=== PATIENT | male | born 1990 | race Caucasian/White ===

== ENCOUNTER 2024-09-04 17:32 | Emergency (ER) | payer OTHER ==
--- NOTE | 2024-09-04 19:01 | RAD REPORT ---
EXAMINATION: ONE VIEW CHEST XR CLINICAL INDICATION: Male, 34 years old.,PALPITATIONS TECHNIQUE: Frontal chest projection is submitted. Examination is limited by patient positioning and t echnique. COMPARISON: 05/26/2023 FINDINGS: The lungs are well inflated and clear. No pneumothorax or sizable effusion. The heart is normal in s ize. Mediastinal contours are unremarkable. IMPRESSION: No acute intrathoracic abnormalities.
[2024-09-04 19:28] LABS: Absolute Basophils 0.1 K/uL (0-0.5); Absolute Eosinophils 0.3 K/uL (0-0.5); Absolute Lymphocytes (CBC) 1.2 K/uL (0.7-4.9); Absolute Monocytes 0.6 K/uL (0.1-1.3); Absolute Neutrophil 5.2 K/uL (1.8-8.0); Basophils % 0.7 % (0-1.3); Eosinophils % 3.9 % (0-4.4); Hematocrit 39.7 % (39.6-49.0); Hemoglobin 13.4 g/dL (13.6-17.9); Lymphocytes % 16.6 % (15.3-44.8); MCH 28.1 pg (27.0-35.0); MCHC 33.7 g/dL (32.0-36.0); MCV 83.4 fL (80-100); Monocytes % 7.6 % (3.3-12.3); Neutrophils % 71.2 % (41.7-73.7); Platelets 246 thou/uL (152-406); RBC Red Blood Cell Count 4.76 M/uL (4.33-5.43); Red Cell Distribution Width 14.9 % (12.1-15.2)
[2024-09-04 19:51] LABS: Anion Gap 7.8 mEq/L (5.0-15.0); Magnesium 2.1 mg/dL (1.6-2.4); Potassium 3.8 mEq/L (3.5-5.1); Thyroid Stimulating Hormone 1.48 uIU/mL (0.358-3.740); Troponin High Sensitivity 3.1 pg/mL (<58.9)
--- NOTE | 2024-09-04 20:03 | ER ---
Nurse's Notes [facility] Name: Marquise Randall Age: 34 yrs Sex: Male : 1990 Arrival Date: 09/04/2024 Time: 17:32 Bed DX3 Private MD: Diagnosis: Palpitations Presentation: 09/04 17:36 Chief complaint: Patient states: Irregular HR and palpitations since 1530 today. ll1 Coronavirus screen: Client denies travel out of the [place] in the last 14 days. congestion, cough unrelated to allergies, fatigue, fever, muscle pain, Client presents with at least one sign or symptom that may indicate coronavirus-19. Standard/surgical mask placed on the client. Ebola Screen: Patient denies travel to an Ebola-affected area in the 21 days before illness onset. Initial Sepsis Screen: Does the patient meet any 2 criteria? No. Patient's initial sepsis screen is negative. Does the patient have a suspected source of infection? No. Patient's initial sepsis screen is negative. Risk Assessment: Do you want to hurt yourself or someone else? Patient reports no desire to harm self or others. Onset of symptoms was September 04, 2024. 17:36 Method Of Arrival: Ambulatory ll1 17:36 Acuity: PEG 3 ll1 Triage Assessment: 17:38 General: Appears uncomfortable, Behavior is calm, cooperative, appropriate for age. ll1 Pain: Denies pain. Cardiovascular: Reports palpitations. Historical: - Allergies: 17:38 SHELLFISH; ll1 - PMHx: 17:38 None; ll1 - PSHx: 17:38 ankle relocation; ll1 - Immunization history:: Adult Immunizations up to date. - Infectious Disease History:: Denies. - Social history:: Smoking status: Patient denies any tobacco usage or history of. Screenin:09 [facility] ED Fall Risk Assessment (Adult) History of falling in the last 3 months, lg3 including since admission No falls in past 3 months (0 pts) Confusion or Disorientation No (0 pts) Intoxicated or Sedated No (0 pts) Impaired Gait No (0 pts) Mobility Assist Device Used No (0 pt) Altered Elimination No (0 pt) Score/Fall Risk Level 0 - 2 = Low Risk Oriented to surroundings, Maintained a safe environment, Educated pt \T\ family on fall prevention, incl call for assistance when getting out of bed, Assessed \T\ reinforced patient's understanding of fall precautions. Abuse screen: Denies threats or abuse. Denies injuries from another. Nutritional screening: No deficits noted. Tuberculosis screening: No symptoms or risk factors identified. Assessment: 20:09 General: Appears in no apparent distress. comfortable, Behavior is calm, cooperative. lg3 Pain: Denies pain. Neuro: No deficits noted. Ott Agitation-Sedation Scale (RASS): 0 - Alert and Calm Level of Consciousness is awake, alert, obeys commands, Oriented to person, place, time, situation. Cardiovascular: No deficits noted. Reports palpitations, since resolved Capillary refill < 3 seconds Clubbing of nail beds is absent JVD is absent Patient's skin is warm and dry. Respiratory: No deficits noted. Airway is patent Respiratory effort is even, unlabored, Respiratory pattern is regular, symmetrical, Breath sounds are clear bilaterally. GI: No deficits noted. No signs and/or symptoms were reported involving the gastrointestinal system. : No signs and/or symptoms were reported regarding the genitourinary system. EENT: No deficits noted. No signs and/or symptoms were reported regarding the EENT system. Derm: No deficits noted. No signs and/or symptoms reported regarding the dermatologic system. Skin is intact, is healthy with good turgor, Skin is dry, Skin is normal, Skin temperature is warm. Musculoskeletal: No deficits noted. No signs and/or symptoms reported regarding the musculoskeletal system. Circulation, motion, and sensation intact. Range of motion: intact in all extremities. Vital Signs: 17:36 BP 159 / 102; Pulse 103; Resp 17; Temp 97.5; Pulse Ox 98% on R/A; Weight 142.88 kg; ll1 Height 6 ft. 0 in. ; Pain 0/10; 20:09 BP 147 / 91; Pulse 97; Resp 17 S; Temp 98.1(O); Pulse Ox 99% on R/A; Pain 0/10; lg3 17:36 Body Mass Index 42.72 (142.88 kg, 182.88 cm) ll1 17:36 Pain Scale: Adult ll1 20:09 Pain Scale: Adult lg3 ED Course: 17:33 Patient arrived in ED. al6 17:35 Stefanie Reardon FNP-C is PHCP. kb 17:36 Simin Chatman MD is Attending Physician. kb 17:38 Triage completed. ll1 17:38 Arm band placed on. ll1 17:46 EKG completed in triage. Results shown to MD. ll1 18:25 XRAY Chest (1 view) In Process Unspecified. EDMS 19:17 Inserted saline lock: 22 gauge in right antecubital area, using aseptic technique. f Blood collected. Flushed with 10 mL NS. 19:17 Initial lab(s) drawn, by me, sent to lab. kmf 19:22 TSH Sent. lg3 19:23 CBC with Diff Sent. lg3 19:23 Basic Metabolic Panel Sent. lg3 19:23 Magnesium Sent. lg3 19:23 Troponin HS Sent. lg3 19:23 CBC with Diff Sent. lg3 20:09 Patient has correct armband on for positive identification. lg3 20:09 No provider procedures requiring assistance completed. IV discontinued, intact, lg3 bleeding controlled, No redness/swelling at site. Pressure dressing applied. Administered Medications: No medications were administered Medication: 20:09 VIS not applicable for this client. lg3 Outcome: 20:02 Discharge ordered by MD. kb 20:09 Discharged to home ambulatory, lg3 20:09 Condition: stable 20:09 Discharge instructions given to patient, Instructed on discharge instructions, follow up and referral plans. Demonstrated understanding of instructions, follow-up care, 20:13 Patient left the ED. lg3 Signatures: Dispatcher [employer] EDWI Stefanie Reardon, CLOSING MANAGER-C CLOSING MANAGER-Bree Gaspar RN RN lg3 Rosalind Bertrand, RN RN 1 Dominique Yeung [facility] Luz Maria Mukherjee
--- NOTE | 2024-09-04 20:03 | EDPHYS ---
Physician Documentation [facility] Name: Marquise Randall Age: 34 yrs Sex: Male : 1990 Arrival Date: 09/04/2024 Time: 17:32 Bed DX3 Private MD: ED Physician Simin Chatman HPI: 09/04 17:45 This 34 yrs old Male presents to ER via Ambulatory with complaints of heart beat kb feeling weird. 17:45 Pt is a 34 year old male who presents for palpitations that started at 1600. States it kb has been intermittent since onset. Describes palpitations as "beating hard." States he has had this in the past, but it normally goes away as fast as it comes on. Came in this time because it keeps happening. Reports no symptoms at this time. . Historical: - Allergies: 17:38 SHELLFISH; ll1 - PMHx: 17:38 None; ll1 - PSHx: 17:38 ankle relocation; ll1 - Immunization history:: Adult Immunizations up to date. - Infectious Disease History:: Denies. - Social history:: Smoking status: Patient denies any tobacco usage or history of. ROS: 17:45 Constitutional: As per HPI kb Exam: 17:45 Constitutional: This is a well developed, well nourished patient who is awake, alert, kb and in no acute distress. Head/Face: Normocephalic, atraumatic. ENT: Moist Mucous membranes Cardiovascular: Regular rate Respiratory: Respirations even and unlabored. No increased work of breathing. Talking in full sentences Abdomen/GI: Soft, non-tender. No distention Skin: Warm, dry with normal turgor. Normal color. MS/ Extremity: Pulses equal, no cyanosis. Neurovascular intact. Full, normal range of motion. Neuro: Awake and alert, GCS 15, oriented to person, place, time, and situation. 17:47 ECG was reviewed by the Attending Physician. kb Vital Signs: 17:36 BP 159 / 102; Pulse 103; Resp 17; Temp 97.5; Pulse Ox 98% on R/A; Weight 142.88 kg; ll1 Height 6 ft. 0 in. ; Pain 0/10; 20:09 BP 147 / 91; Pulse 97; Resp 17 S; Temp 98.1(O); Pulse Ox 99% on R/A; Pain 0/10; lg3 17:36 Body Mass Index 42.72 (142.88 kg, 182.88 cm) ll1 17:36 Pain Scale: Adult ll1 20:09 Pain Scale: Adult lg3 MDM: 17:36 Medical Screening Exam initiated kb 17:46 Data reviewed: vital signs, nurses notes. kb 19:53 Differential diagnosis: arrythmia, dehydration, stress disorder. Counseling: I had a kb detailed discussion with the patient and/or guardian regarding the historical points, exam findings, and any diagnostic results supporting the discharge/admit diagnosis, lab results, radiology results, the need for outpatient follow up, a mortgage originator, to return to the emergency department if symptoms worsen or persist or if there are any questions or concerns that arise at home. 09/04 17:41 Order name: Basic Metabolic Panel; Complete Time: 19:52 kb 09/04 17:41 Order name: CBC with Diff; Complete Time: 19:38 kb 09/04 17:41 Order name: Magnesium; Complete Time: 19:52 kb 09/04 17:41 Order name: Troponin HS; Complete Time: 19:52 kb 09/04 17:41 Order name: TSH; Complete Time: 19:52 kb 09/04 17:41 Order name: XRAY Chest (1 view); Complete Time: 19:02 kb 09/04 17:41 Order name: Cardiac monitoring; Complete Time: 20:06 kb 09/04 17:41 Order name: EKG - Nurse/Tech; Complete Time: 17:46 kb 09/04 17:41 Order name: IV Saline Lock; Complete Time: 19:22 kb 09/04 17:41 Order name: Labs collected and sent; Complete Time: 19:22 kb 09/04 17:41 Order name: O2 Per Protocol; Complete Time: 19:23 kb 09/04 17:41 Order name: O2 Sat Monitoring; Complete Time: 19:23 kb EC:47 Rate is 99 beats/min. Rhythm is regular. QRS [place] is Normal. AR interval is shortened kb at 110 msec. QRS interval is normal at 98 msec. QT interval is normal at 438 msec. Administered Medications: No medications were administered Disposition Summary: 09/04/24 20:02 Discharge Ordered Notes: Location: Home kb Condition: Stable kb Diagnosis - Palpitations kb Followup: kb - With: Emergency Department - When: As needed - Reason: Worsening of condition Followup: kb - With: Private Physician - When: 2 - 3 days - Reason: Recheck today's complaints, Continuance of care, Re-evaluation by your physician Discharge Instructions: - Discharge Summary Sheet kb - Palpitations, [id number] kb Forms: - Medication Reconciliation Form kb - Antibiotic Education kb - Prescription Opioid Use kb - Patient Portal Instructions kb - Leadership Thank You Letter kb Signatures: Dispatcher [employer] EDMS Stefanie Reardon FNP-C FIRE PREVENTION SPECIALIST-Bree Gaspar, RN RN lg3 Rosalind Bertrand, RN RN ll1 Corrections: (The following items were deleted from the chart) 17:41 17:41 BASIC METABOLIC PANEL+C.LAB.BRZ ordered. EDMS EDMS 17:41 17:41 CBC+H.LAB.BRZ ordered. EDMS EDMS 17:41 17:41 MAGNESIUM+C.LAB.BRZ ordered. EDMS EDMS 17:41 17:41 Troponin High Sensitivity+C.LAB.BRZ ordered. EDMS EDMS 17:41 17:41 THYROID STIMULAT HORMONE+C.LAB.BRZ ordered. EDMS EDMS 17:41 17:41 Chest Single View+RAD.RAD.BRZ ordered. EDMS EDMS
[2024-09-07 15:33] VITALS: BP 147/91; TEMP 98.1; O2SAT 99
--- NOTE | 2024-09-09 12:14 | EKG ---
Test Date: 2024-09-04 Test Time: 17:44:58 Scrap Sorter: AMADA MEASUREMENT RESULTS: Intervals: Rate: 99 MS: 110 QRSD: 98 QT: 342 QTc: 438 [place]: P: 54 MS: 110 QRS: 111 T: 54 INTERPRETIVE STATEMENTS: Sinus rhythm with short MS Otherwise normal ECG Compared to ECG 05/26/2023 09:51:11 Short MS interval now present Left posterior fascicular block no longer present Electronically Signed On 09-09-24 12:11:02 COVERSTITCH BINDER by Lucas Tavarez
== END 2024-09-04 20:13 | disposition home or self-care (01) ==
LOC: ER 17:32
DX: R00.2 Palpitations (principal); Z91.013 Allergy to seafood
CPT/HCPCS: 36415; 71045; 80048; 83735; 84443; 84484; 85025; 93005; 99284